=== PATIENT | female | born 1970 | race Caucasian/White ===

== ENCOUNTER 2016-06-07 06:37 | Inpatient (IN) | payer OTHER ==
[2016-06-06 08:17] VITALS: BMI 25.6
[2016-06-07] MEDS ORDERED: Absorbable Gelatin Sponge Size 12-7 ONE (07:25)
[2016-06-07] MEDS ORDERED: Bacitracin Ointment 30 GM TUBE ONE (07:26)
[2016-06-07] MEDS ORDERED: Thrombin Topical 5,000 IU Spray Kit ONE (07:26)
[2016-06-07] MEDS ORDERED: Bupivacaine 0.5% Inj(30mL) ONE (07:26)
[2016-06-07] MEDS ORDERED: Lidocaine 2% w Epi 1:100,000 Inj IJ ONE (07:26)
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
[2016-06-07] MEDS ORDERED: Absorbable Gelatin Sponge Size 100 ONE (08:22)
[2016-06-07] MEDS ORDERED: Propofol 10 mg/ml Inj (20 ML) ONE (08:50)
[2016-06-07] MEDS ORDERED: Succinylcholine 200 mg/10 ml Inj IV ONE (08:50)
[2016-06-07] MEDS ORDERED: Rocuronium 10 mg/ml (5 ml) ONE (08:50)
[2016-06-07] MEDS ORDERED: Lactated Ringer's 1,000 ML IV ONE (09:15)
[2016-06-07] MEDS ORDERED: Midazolam 2 MG/2 ML VIAL ONE (09:16)
[2016-06-07] MEDS ORDERED: Esmolol 100 mg/10ml Inj IV ONE (09:28)
[2016-06-07] MEDS ORDERED: Neostigmine Methylsulfate 2 MG/2 ML ML IV ONE (09:44)
[2016-06-07] MEDS ORDERED: Neostigmine Methylsulfate 3mg/3ml Syringe IV ONE (09:44)
[2016-06-07] MEDS ORDERED: Dexamethasone 4 mg/1 ml ONE (09:45)
[2016-06-07] MEDS ORDERED: HEMOSTATIC MATRIX 10 ML DIS.NEEDLE TOP ONE (09:50)
[2016-06-07] MEDS ORDERED: HYDROmorphone 0.5 mg/0.5 ml ISec IVP PRN (10:30)
[2016-06-07] MEDS ORDERED: Oxycodone/Acetaminophen 5/325 mg Tab PO PRN ×2 (11:09)
--- NOTE | 2016-06-07 14:01 | RAD ---
PROCEDURE: Fluoroscopy up to 1 hr. HISTORY: LUMBAR LAMINECTOMY COMPARISON: None TECHNIQUE: Standard protocol for this study/examination. FINDINGS: Submitted images from the current procedure: 1.0 IMPRESSION: Total fluoroscopic time (continuous mode) utilized during the procedure: 1.9 seconds.
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
[2016-06-07] MEDS ORDERED: Influenza Vaccine(5yr & older) 0.5 ML/45 MCG IM ONE (18:22)
[2016-06-07] MEDS: Lactated Ringer's 1,000 ML IV SCH (21:01)
--- NOTE | 2016-06-07 21:29 | OP ---
PROCEDURE DATE: 06/07/2016 PREOPERATIVE DIAGNOSIS: Lumbar herniated disk at L5-S1. POSTOPERATIVE DIAGNOSIS: Lumbar herniated disk at L5-S1. PROCEDURE: Right L5-S1 hemilaminotomy, medial facetectomy, decompression, foraminotomy. SURGEON: Dr. Franklin. PRODUCT RESPONSIBILITY LIAISON: EVA Amezcua. She helped me perform the surgery. She stayed from the [facility] to the end of the surgery. She is a physician night assistant. Fluoroscopy has been used. Microscope has been used. DESCRIPTION OF PROCEDURE: The patient was brought to the operating room, administered general endotr acheal anesthesia, placed in a prone position on a Clint table. Care was taken to protect all the pressure points. Back of the lumbar area thoroughly prepped and draped in same sterile manner after marking for skin incision for lumbar laminectomy at L5-S1. After prepping and draping the area, skin has been incised. Bleeding skins have been controlled with bipolar event representative. After using a Bovie event representative, paraspinal muscles have been detached from attachment of spinous process and lamina of L 5-S1 on the right side. Laila retractor has been applied to outer aspect of L5-S1. Confirmation of the levels has been done with help of fluoroscopy. By using a high-speed drill, the lamina of L5-S1 and medial part of the facets have been drilled. Drilling is continued on the top and bottom of ____ . Drilling is also continued on the medial part of the facet ____ seen. Once this has been done, th inned out ____ lamina on the medial part of the facet, ligamentum flavum has been removed. The nerve root has been retracted and there was a herniated disk noted; however, there was no extrusion noted. Hence, foraminotomy ____ performed. Hemostasis best achieved. Fascia closed, intraspinous ligamen t, spinous process with 1-0 Vicryl, subcutaneous with 3-0 Vicryl, skin has been closed with intraderm al 3-0 Vicryl stitches. The patient tolerated the procedure. After procedure, mobilized to recovery room in stable condition. Jeffry Franklin MD cc: 252 TT: 06/07/2016 21:29:02 rn
[2016-06-07] MEDS: Dexamethasone 2 MG in Sodium Chloride 0.9% 50 ML IVPB SCH (23:00)
[2016-06-08] MEDS: Lactated Ringer's 1,000 ML IV SCH (07:01)
[2016-06-08 08:22] VITALS: BP 92/60; RESP 18; TEMP 99.3
[2016-06-08] MEDS ORDERED: Enoxaparin 40 mg Syringe SC SCH (09:00)
[2016-06-08 10:27] VITALS: PULSE 99; O2SAT 98
[2016-06-08] MEDS: Dexamethasone 2 MG in Sodium Chloride 0.9% 50 ML IVPB SCH (10:30)
--- NOTE | 2016-06-08 14:51 | CP.PCM.DIS ---
Provider - Provider Date of Admission: 06/07/16 10:54 Attending physician: Troy Vergara MD Primary care physician: Jeffry Franklin MD Time Spent in preparation of Discharge (in minutes): 20 Diagnosis - Discharge Diagnosis (1) Radiculopathy Status: Acute Hospital Course - Lab Results Lab Results: Most Recent Lab Values Blood Type A POSITIVE 06/07/16 07:27 Blood Type Confirm A POSITIVE 06/07/16 08:08 Antibody Screen Negative 06/07/16 07:27 BBK History Checked No verified bt 06/07/16 07:27 - Hospital Course Hospital Course: pt was admitted s/p laminectomy of L5-S1 for observation, recovery as expected, denies any pain and feels ready to go home. pt is being discharged home with precautions and to follow up with surgeon for complete clearance to return to normal activity Discharge Exam - Head Exam Head Exam: ATRAUMATIC, NORMAL INSPECTION, NORMOCEPHALIC - Eye Exam Eye Exam: Normal appearance, PERRL Pupil Exam: NORMAL ACCOMODATION - ENT Exam ENT Exam: Mucous Membranes Moist - Respiratory Exam Respiratory Exam: NORMAL BREATHING PATTERN - Cardiovascular Exam Cardiovascular Exam: REGULAR RHYTHM, +S1, +S2 - GI/Abdominal Exam GI & Abdominal Exam: Normal Bowel Sounds, Soft - Extremities Exam Extremities exam: normal inspection - Back Exam Additional comments: incision area neatly dressed, no discharge, no erythema - Neurological Exam Neurological exam: Alert, CN II-XII Intact, Normal Gait, Oriented x3 - Psychiatric Exam Psychiatric exam: Normal Affect - Skin Skin Exam: Normal Color Discharge Plan - Discharge Medications Prescriptions: traMADol [Ultram] 50 mg PO TID PRN #30 tab PRN Reason: Pain, Severe (8-10) - Follow Up Plan Condition: GOOD Disposition: HOME/ ROUTINE Instructions: Laminectomy (GEN) Additional Instructions: please follow up with Dr. Franklin as discussed Referrals: Jeffry Franklin MD [Primary Care Provider] -
== END 2016-06-08 14:00 | disposition home or self-care (01) | DRG 517 ==
LOC: H.OPSURG 06:37 → H.MEDSURG1 10:54
PROVIDERS: ADMIT Family Medicine; ATTEND Family Medicine
PROC: 01NB0ZZ Release Lumbar Nerve, Open Approach (ICD-10-PCS; 2016-06-07)
PROC: 3E0234Z Introduction of Serum, Toxoid and Vaccine into Muscle, Percutaneous Approach (ICD-10-PCS; principal; 2016-06-08)
DX: M47.26 Other spondylosis with radiculopathy, lumbar region (principal); M51.17 Intervertebral disc disorders with radiculopathy, lumbosacral region; Z23 Encounter for immunization